=== PATIENT | female | born 1985 | race Caucasian/White ===

== ENCOUNTER 2023-10-16 17:10 | Emergency (ER) | payer MEDICAID, OTHER ==
[~2023-10-16] VITALS: Ht 167.6 cm; Wt 145.5 kg
[2023-10-16 17:12] VITALS: TEMP 97.5
[2023-10-16 18:32] LABS: APPEARANCE, URINE HAZY (CLEAR); BACTERIA, URINE AUTO NEGATIVE (NEGATIVE); BILIRUBIN, URINE AUTO NEGATIVE (NEGATIVE); BLOOD, URINE BLOOD 2+ (NEGATIVE); COLOR, URINE YELLOW (YELLOW); GLUCOSE, URINE (UA) AUTO NEGATIVE (NEGATIVE); KETONE, URINE AUTO NEGATIVE (NEGATIVE); LEUKOCYTE ESTERASE, URINE AUTO NEGATIVE (NEGATIVE); MUCUS, URINE SMALL (NEGATIVE); NITRITE, URINE AUTO NEGATIVE (NEGATIVE); PROTEIN, URINE AUTO 1+ mg/dL (NEGATIVE); RBC, URINE AUTO 2 /HPF (0-3); SPECIFIC GRAVITY URINE AUTO 1.023 (1.002-1.035); SQUAMOUS EPITHELIAL CELL UR AU 17 /HPF (0-6); WBC, URINE AUTO 1 /HPF (0-3)
[2023-10-16 18:44] VITALS: BP 123/97; O2SAT 99
[2023-10-16] MEDS: MAGIC MOUTHWASH *ED ONLY* 5ML ORAL SYRINGE SS ONE (18:46)
[2023-10-16 18:49] LABS: BASO % 0.4 % (0.0-1.0); EOS # 0.1 10^3/uL (0.0-0.5); EOS % 1.4 % (0.0-3.0); HEMATOCRIT 39.2 % (36.0-47.0); HEMOGLOBIN 12.8 g/dl (12.0-15.5); LYMPH # 2.4 10^3/uL (1.5-5.0); LYMPH % 25.6 % (24.0-44.0); MEAN CORPUSCULAR HGB CONC 32.7 g/dl (32.0-36.5); MEAN CORPUSCULAR VOLUME 88.9 fl (80.0-96.0); MONO # 0.5 10^3/uL (0.0-0.8); MONO % 4.7 % (2.0-8.0); NEUTROPHILS # 6.4 10^3/uL (1.5-8.5); NEUTROPHILS % 67.7 % (36.0-66.0); PLATELET COUNT, AUTOMATED 327 10^3/uL (150-450); RED BLOOD COUNT 4.41 10^6/uL (4.00-5.40); WHITE BLOOD COUNT 9.5 10^3/uL (4.0-10.0)
[2023-10-16 19:10] LABS: ALBUMIN 3.6 G/DL (3.2-5.2); CK-MB VALUE MASS < 1.0 NG/ML (<3.6); HCG, SERUM QUALITATIVE NEGATIVE (NEGATIVE)
[2023-10-16 19:13] LABS: ALKALINE PHOSPHATASE 84 U/L (46-116); ALT/SGPT 32 U/L (7.0-40); AST/SGOT 17 U/L (<34); BILIRUBIN,DIRECT < 0.1 MG/DL (<0.4); BILIRUBIN,TOTAL 0.3 MG/DL (0.3-1.2); CPK CREATINE PHOSPHOKINASE 62 U/L (34-145); MB/CK RELATIVE INDEX 1.61 (< OR =4); TOTAL PROTEIN 7.5 G/DL (5.7-8.2)
[2023-10-16 19:15] LABS: FREE T4 1.17 NG/DL (0.89-1.76); THYROID STIMULATING HORMONE 3.027 uIU/ML (0.55-4.78)
[2023-10-16 19:23] LABS: CK-MB VALUE MASS < 1.0 NG/ML (<3.6)
[2023-10-16 19:25] LABS: CPK CREATINE PHOSPHOKINASE 62 U/L (34-145); MB/CK RELATIVE INDEX 1.61 (< OR =4)
[2023-10-16] MEDS ORDERED: HYDR-3363 PO (20:05)
== END 2023-10-16 20:11 | disposition home or self-care (01) ==
LOC: M ED 17:10
DX: R07.9 Chest pain, unspecified (principal); F41.9 Anxiety disorder, unspecified; R00.0 Tachycardia, unspecified; I10 Essential (primary) hypertension; Z79.811 Long term (current) use of aromatase inhibitors

== ENCOUNTER 2024-12-14 10:41 | Inpatient (IN) | payer OTHER, MEDICAID ==
[~2024-12-14] VITALS: Ht 167.6 cm; Wt 106.0 kg
[~2024-12-14 10:41] MED LIST: HYDR-3363 PO
[2024-12-14 11:36] LABS: HEMOGLOBIN 11.8 g/dl (12.0-15.5); MEAN CORPUSCULAR HEMOGLOBIN 28.6 pg (27.0-33.0); MEAN CORPUSCULAR HGB CONC 31.9 g/dl (32.0-36.5); MEAN CORPUSCULAR VOLUME 89.6 fl (80.0-96.0); PLATELET COUNT, AUTOMATED 355 10^3/uL (150-450); RED BLOOD COUNT 4.13 10^6/uL (4.00-5.40); WHITE BLOOD COUNT 9.5 10^3/uL (4.0-10.0)
[2024-12-14 12:01] LABS: ETHYL ALCOHOL (ETHANOL) < 0.003 % (0.000-0.010)
[2024-12-14 12:03] LABS: ALBUMIN 3.6 G/DL (3.2-5.2); ALKALINE PHOSPHATASE 85 U/L (35-104); ALT/SGPT 16 U/L (7.0-40); AST/SGOT 12 U/L (<34); BILIRUBIN,DIRECT < 0.1 MG/DL (<0.4); BILIRUBIN,TOTAL 0.3 MG/DL (0.3-1.2); BLOOD UREA NITROGEN 18 MG/DL (9-23); CALCIUM LEVEL 9.5 MG/DL (8.5-10.1); CARBON DIOXIDE LEVEL 23 MMOL/L (20-31); CHLORIDE LEVEL 109 MMOL/L (98-107); CREATININE FOR GFR 0.63 MG/DL (0.55-1.30); GLOMERULAR FILTRATION RATE > 90.0 (>60); GLUCOSE, FASTING 126 MG/DL (60-100); POTASSIUM SERUM 4.4 MMOL/L (3.5-5.1); SALICYLATE LEVEL < 3.0 MG/DL (<30); SODIUM LEVEL 141 MMOL/L (136-145); TOTAL PROTEIN 7.7 G/DL (5.7-8.2)
[2024-12-14 12:04] LABS: THYROID STIMULATING HORMONE 2.468 uIU/ML (0.55-4.78)
[2024-12-14 12:08] LABS: HCG, SERUM QUALITATIVE NEGATIVE (NEGATIVE)
[2024-12-14 12:13] LABS: AMPHETAMINES LEVEL URINE NEGATIVE (NEGATIVE); BENZODIAZEPINES URINE NEGATIVE (NEGATIVE)
[2024-12-14 12:14] LABS: BARBITURATES URINE NEGATIVE (NEGATIVE); CANNABINOIDS URINE NEGATIVE (NEGATIVE); COCAINE METABOLITE URINE NEGATIVE (NEGATIVE); METHADONE URINE NEGATIVE (NEGATIVE); OPIATES URINE NEGATIVE (NEGATIVE); PHENCYCLIDINE URINE NEGATIVE (NEGATIVE)
[2024-12-14] MEDS ORDERED: ZOLO100T PO (13:35)
[2024-12-14] MEDS ORDERED: METF-838 PO (13:35)
[2024-12-14] MEDS ORDERED: SERT50TA29 PO (13:35)
[2024-12-14] MEDS ORDERED: METO1TAB33 PO (13:35)
[2024-12-14] MEDS ORDERED: CHLO25TA PO (13:35)
[2024-12-14] MEDS ORDERED: HOME MED LIST COMPLETE! XX SCH (13:35)
[2024-12-14] MEDS ORDERED: FAMO20TA4 PO (13:35)
[2024-12-14] MEDS: SERTRALINE HCL 50 MG TAB PO SCH (21:00)
[2024-12-14] MEDS: metFORMIN XR 500MG TAB PO SCH (21:00)
[2024-12-14] MEDS: SERTRALINE 100 MG TAB PO SCH (21:00)
[2024-12-14] MEDS ORDERED: MAALOX 30 ML SUSP *UDC PO PRN (22:10)
[2024-12-14] MEDS ORDERED: MOM 30ML SUSPENSION UDC PO PRN (22:10)
[2024-12-15 07:59] VITALS: BP 154/102; TEMP 97.4; O2SAT 98
[2024-12-15] MEDS: FAMOTIDINE 20 MG TAB PO SCH (08:17)
[2024-12-15] MEDS: METOPROLOL SUCC. 100MG *XL* TAB PO SCH (08:17)
[2024-12-15] MEDS: CHLORTHALIDONE 25 MG TAB PO SCH (08:17)
[2024-12-15] MEDS ORDERED: BENZOCAINE 10% 9GM TUBE (ANBESOL) MT PRN (09:15)
[2024-12-15] MEDS: ACETAMINOPHEN 325 MG TAB PO PRN (09:19)
[2024-12-15] MEDS: IBUPROFEN 400MG TAB PO PRN (10:51)
[2024-12-15 15:50] VITALS: BP 113/65; TEMP 97.8; O2SAT 97
[2024-12-15] MEDS: traZODone 50 MG TAB PO PRN (20:14)
[2024-12-16 06:29] VITALS: BP 131/75; TEMP 97.8; O2SAT 98
[2024-12-16] MEDS: CHLORTHALIDONE 25 MG TAB PO SCH (08:11)
[2024-12-16 15:55] VITALS: BP 112/58; TEMP 97.6; O2SAT 96
[2024-12-16] MEDS: PRAZOSIN 1 MG CAP PO SCH (20:29)
[2024-12-17 06:26] VITALS: BP 119/56; TEMP 97.1; O2SAT 97
[2024-12-17 09:16] VITALS: BP 138/78
[2024-12-17 09:52] VITALS: BP 121/63; TEMP 97.3; O2SAT 97
[2024-12-17] MEDS: ONDANSETRON 4MG ORAL DISINTEGRATING TAB SL PRN (10:21)
[2024-12-17 14:46] VITALS: BP 101/57; TEMP 97.6; O2SAT 96
[2024-12-18 06:40] VITALS: BP 131/69; TEMP 97.7; O2SAT 94
[2024-12-18 15:51] VITALS: BP 118/84; TEMP 97.9; O2SAT 97
[2024-12-18] MEDS: diphenhydrAMINE 25MG CAP PO PRN (15:56)
[2024-12-18] MEDS: PRAZOSIN 1 MG CAP PO SCH (20:27)
[2024-12-18] MEDS: traZODone 50 MG TAB PO SCH (20:27)
[2024-12-19 06:36] VITALS: BP 116/61; TEMP 97.8; O2SAT 100
[2024-12-19 18:53] VITALS: BP 127/81; TEMP 97.9
[2024-12-20 06:27] VITALS: BP 122/60; TEMP 96.9; O2SAT 98
[2024-12-20 09:01] VITALS: BP 130/66
[2024-12-20 09:03] VITALS: BP 130/66
[2024-12-20] MEDS ORDERED: ZOLO100T PO (11:25)
[2024-12-20] MEDS ORDERED: CHLO25TA PO (11:25)
[2024-12-20] MEDS ORDERED: SERT50TA29 PO (11:25)
[2024-12-20] MEDS ORDERED: TRAZ-252 PO (11:25)
[2024-12-20] MEDS ORDERED: HYDR-4570 PO (11:25)
[2024-12-20] MEDS ORDERED: PRAZ1CAP PO (11:25)
== END 2024-12-20 13:18 | disposition home or self-care (01) | DRG 751 ==
LOC: M ED 10:41 → M ED INP 14:25 → M PSY 15:09
PROVIDERS: ADMIT Psychiatry & Neurology Psychiatry; ATTEND Psychiatry & Neurology Psychiatry
DX: F33.1 Major depressive disorder, recurrent, moderate (principal); F41.1 Generalized anxiety disorder; F41.0 Panic disorder [episodic paroxysmal anxiety]; F60.3 Borderline personality disorder; I10 Essential (primary) hypertension; E11.9 Type 2 diabetes mellitus without complications; K21.9 Gastro-esophageal reflux disease without esophagitis; E66.812 Obesity, class 2; R45.851 Suicidal ideations; Z63.4 Disappearance and death of family member; Z79.84 Long term (current) use of oral hypoglycemic drugs; Z79.899 Other long term (current) drug therapy; Z56.0 Unemployment, unspecified